=== PATIENT | female | born 1985 | race Caucasian/White ===

== ENCOUNTER 2017-03-20 17:01 | Emergency (ER) | payer OTHER ==
[~2017-03-20] VITALS: Ht 160 cm; Wt 60.4 kg
[2017-03-20 17:05] VITALS: BP 166/97
[2017-03-20 17:22] LABS: HEMATOCRIT 38.4 % (36.0-46.0); MCH 30.2 PG (29.0-34.0); MCHC 34.4 G/DL (30.0-36.0); MCV 87.9 FL (83-99); MEAN PLAT.VOLUME 10.2 uM^3 (9.5-12.4); PLATELET COUNT 280 K/uL (156-360); RBC DIS.WIDTH-CV 11.5 % (11.8-14.6); RBC DIS.WIDTH-SD 37.1 % (39-53); RED BLOOD COUNT 4.37 M/uL (3.80-5.20)
[2017-03-20 17:31] LABS: CHLORIDE 106 mEq/L (99-109); SODIUM 142 mEq/L (136-147)
[2017-03-20 17:32] LABS: GLUCOSE 103 mg/dL (70-99)
[2017-03-20 17:34] LABS: ANION GAP 12 MEQ/L (2-14)
[2017-03-20 17:36] LABS: GFR ESTIMATE (CALCULATED) > 59 mL/min/
[2017-03-20 17:37] LABS: UREA NITROGEN (BUN) 13 mg/dL (9-23)
[2017-03-20 20:04] LABS: D-DIMER ELISA < 150.00 ng/mLDDU (<230)
[2017-03-20] MEDS ORDERED: TRI-LO-SPRINTE1 EAC1 PO (20:05)
[2017-03-20 20:18] LABS: TROP-I INTERPRETATION NEGATIVE; TROPONIN-I < 0.01 ng/mL (0.0-0.30)
== END 2017-03-20 20:05 | disposition left against medical advice (07) ==
LOC: EME 17:01 → RME 17:01
PROVIDERS: Physician Assistant Medical
DX: M54.6 Pain in thoracic spine (principal)
CPT/HCPCS: 71020; 80048; 84484; 85027; 85379; 99281; 99283